=== PATIENT | male | born 1945 | race Caucasian/White ===

== ENCOUNTER 2017-04-25 09:03 | Emergency (ER) | payer MEDICARE ==
--- NOTE | 2017-04-25 10:43 | ER NURSING DOCUMENTATION ---
Nurse's Notes [facility] ([place], [place]) Name:Randell Fonseca Age:71 yrs Sex:Male :1945 Arrival Date:04/25/2017 Time:09:03 Bed5 Private MD:Franklin Resendiz Diagnosis:Open Wound of Tongue - Mouth Presentation: 04/25 09:05 Acuity: MARCELINA 3 rh 09:15 Presenting complaint: Patient states: Pt states he spit up blood this AM during his breakfast. Transition of care: Home. 09:15 Method Of Arrival: Walk In Triage Assessment: 09:16 General: Appears in no apparent distress, Behavior is cooperative. Pain: Denies pain. rh EENT: some dried blood noted around teeth. Neuro: Level of Consciousness is awake, alert, obeys commands, Oriented to person, place, time, event. Cardiovascular: Capillary refill < 3 seconds. Historical: - Allergies: SULFA (SULFONAMIDES); - Home Meds: 1. Aspirin Oral 2. omeprazole Oral - PMHx: GERD; - PSHx: Tonsillectomy; HERNIA REPAIR; - Tetanus: < 10 years. - Ebola Screening: : Patient negative for fever greater than or equal to 101.5 degrees Fahrenheit, and additional compatible Ebola Virus Disease symptoms. - Immunization history: Flu Vaccine < 1 year. - Social history: Smoking status: Patient states was never smoker of tobacco. Screenin:18 Infectious Disease Risk None. Abuse screen: Denies threats or abuse. Denies injuries rh from another. Nutritional screening: No deficits noted. Assessment: 09:18 See Triage Assessment done by same RN. rh Vital Signs: 09:17 BP 187 / 75; Pulse 57; Resp 17; Temp 98.1(O); Pulse Ox 94% on R/A; Weight 72.57 kg; rh Height 5 ft. 10 in. (177.80 cm); Pain 0/10; 09:17 Body Mass Index 22.96 (72.57 kg, 177.80 cm) rh ED Course: 09:04 Patient arrived in ED. arc 09:05 Franklin Resendiz MD is Private Physician. arc 09:05 Jacek Alcaraz MD is Attending Physician. or 09:05 Ree Amaro is Primary Nurse. 09:05 Triage completed. rh 09:18 Notified ED Physician of patient's arrival and chief complaint. Dr. Alcraaz notified. 09:18 Valuables Remains with patient Patient has correct armband on for positive rh identification. Bed in low position. Call light in reach. Administered Medications: No medications were administered Outcome: 10:40 Discharge ordered by . madeleine 10:41 Discharged to home ambulatory. 10:41 Condition: improved 10:41 Discharge Assessment: Patient awake, alert and oriented x 3. No cognitive and/or functional deficits noted. Patient verbalized understanding of disposition instructions. 10:41 Discharge instructions given to patient, Instructed on discharge instructions, follow up and referral plans. Demonstrated understanding of instructions. 10:42 Patient left the ED. 04/26 17:20 Discharge F/U Call: Unable to reach: no answer st Signatures: Jessica Loco, RN RN Jacek Lezama MD MD sc Chew, Estefany, Reg Reg Ree Bradley
--- NOTE | 2017-04-25 10:43 | ER PHYSICIAN DOCUMENTATION ---
Physician Documentation [facility] Name:Randell Fonseca Age:71 yrs Sex:Male :1945 Arrival Date:04/25/2017 Time:09:03 Bed5 Private MD:Franklin Resendiz ED, Scott Disposition: 04/25/17 10:40 Discharged to Home/Self Care. Impression: Open Wound of Tongue - Mouth. - Condition is Good. - Discharge Instructions: LACERATION, Small/superficial, Not sutured. - Medical Reconciliation form form. - Follow up: Private Physician; When: 2 - 3 days; Reason: Continuance of care. - Problem is new. - Symptoms have improved. HPI: 04/25 10:40 This 71 yrs old Male presents to ER via Walk In with complaints of Mouth sc Problem. 10:40 The patient presents with bleeding. The problem is located in the tongue. Onset: The sc symptom(s)/episode began/occurred suddenly. Duration: The symptoms are intermittent. didn't know where blood he was spitting out was coming from. Historical: - Allergies: SULFA (SULFONAMIDES); - Home Meds: 1. Aspirin Oral 2. omeprazole Oral - PMHx: GERD; - PSHx: Tonsillectomy; HERNIA REPAIR; - Tetanus: < 10 years. - Ebola Screening: : Patient negative for fever greater than or equal to 101.5 degrees Fahrenheit, and additional compatible Ebola Virus Disease symptoms. - Immunization history: Flu Vaccine < 1 year. - Social history: Smoking status: Patient states was never smoker of tobacco. ROS: 10:42 Constitutional: Negative for fever, chills, and weight loss. sc Eyes: Negative for injury, pain, redness, and discharge. Back: Negative for injury and pain. Skin: Negative for injury, rash, and discoloration. 10:42 Neuro: Negative for headache, weakness, numbness, tingling, and seizure. sc 10:42 ENT: Positive for bleeding. Exam: Constitutional: This is a well developed, well nourished patient who is awake, alert, and in no acute distress. Head/Face: Normocephalic, atraumatic. Eyes: Pupils equal round and reactive to light, extra-ocular motions intact. Lids and lashes normal. Conjunctiva and sclera are non-icteric and not injected. Cornea within normal limits. Periorbital areas with no swelling, redness, or edema. Back: No spinal tenderness. No costovertebral tenderness. Full range of motion. 10:42 Skin: Warm, dry with normal turgor. Normal color with no rashes, no lesions, and no sc evidence of cellulitis. 10:42 ENT: Mouth: Tongue: approximately 0.5cm(s), Dental exam: no acute changes. Vital Signs: 09:17 BP 187 / 75; Pulse 57; Resp 17; Temp 98.1(O); Pulse Ox 94% on R/A; Weight 72.57 kg; rh Height 5 ft. 10 in. (177.80 cm); Pain 0/10; 09:17 Body Mass Index 22.96 (72.57 kg, 177.80 cm) rh MDM: 09:05 Patient medically screened. md 10:46 Data reviewed: vital signs, nurses notes, and as a result, I will discharge patient. md Counseling: I had a detailed discussion with the patient and/or guardian regarding: the need for outpatient follow up, for a referral to a specialist, for concern of oral CA rule out. Dispensed Medications: No medications were administered Signatures: Jacek Alcaraz MD MD sc Hofsess, Rachel
== END 2017-04-25 10:43 | disposition home or self-care (01) ==
LOC: ER 09:03
DX: S01.502A Unspecified open wound of oral cavity, initial encounter (principal); Z79.82 Long term (current) use of aspirin; Z79.899 Other long term (current) drug therapy
CPT/HCPCS: 99281; 99282